=== PATIENT | male | born 1945 | race Caucasian/White ===

== ENCOUNTER 2018-11-10 21:17 | Emergency (ER) | payer OTHER, MEDICAID ==
[~2018-11-10] VITALS: Ht 165.1 cm; Wt 86.2 kg
[2018-11-10 21:37] VITALS: BP 114/66
--- NOTE | 2018-11-10 21:38 | NUR ---
TO BED # 12 VIA W/C, REPORT GIVEN TO JANE RAMSEY
--- NOTE | 2018-11-10 21:45 | NUR ---
PT CAME INTO THE ER W/ C/O ABDOMINAL PAIN, DENIES N/V, NO BM X 3 DAYS. ABDOMEN SOFT AND DISTENDED,BS ACTIVE IN ALL 4 Q, TENDER TO PALPATION ALL 4 Q, PT GRIMACING, 10/10 PAIN. PT TOOK PEPTOBISMOL AT HOME AND HAD NO EFFECT. PAST MED HX: LYMPHOMA, STROKE, PACEMAKER AND DIFIBRILLATOR PUT IN, HTN, HIGH CHOLESTEROL. CURRENT RX:OMEPRAZOLE, ATORVASTATIN, LIPITOR, LISINOPRIL, CARBADALOL. Addendum: 11/10/18 at 2228 by MEDGA PT CAME INTO THE ER W/ C/O ABDOMINAL PAIN, DENIES N/V, NO BM X 3 DAYS. ABDOMEN SOFT AND DISTENDED,BS ACTIVE IN ALL 4 Q, TENDER TO PALPATION ALL 4 Q, PT GRIMACING, 10/10 PAIN. PT TOOK PEPTOBISMOL AT HOME AND HAD NO EFFECT. SAFETY PRECAUTIONS IN PLACE, MADE AWARE, WILL CONTINUE TO MONITOR. PAST MED HX: LYMPHOMA, STROKE, PACEMAKER AND DIFIBRILLATOR PUT IN, HTN, HIGH CHOLESTEROL. CURRENT RX:OMEPRAZOLE, ATORVASTATIN, LIPITOR, LISINOPRIL, CARBADALOL.
[2018-11-10] MEDS ORDERED: KETOROLAC 60 MG/2 ML VIAL IM ONE (22:55)
--- NOTE | 2018-11-10 23:08 | NUR ---
PT TAKEN TO XRAY IN BED BY RT.
[2018-11-10] MEDS ORDERED: LACTULOSE 20 GM/30 ML UDC PO ONE (23:30)
[2018-11-10] MEDS ORDERED: PANTOPRAZOLE 40 MG TABEC PO ONE (23:30)
--- NOTE | 2018-11-10 23:32 | NUR ---
PT RETURN FROM XRAY
--- NOTE | 2018-11-10 23:35 | NUR ---
PT BACK FROM XRAY, TOLERATED PROCEDURE WELL.
[2018-11-10 23:48] VITALS: BP 114/68
--- NOTE | 2018-11-10 23:48 | NUR ---
Patient discharged with v/s stable. Written and verbal after care instructions given and explained. Patient alert, oriented and verbalized understanding of instructions. Ambulatory with steady gait. All questions addressed prior to discharge. ID band removed. Patient advised to follow up with PMD. Rx of Lactulose, Mineral oil, Protonix given. Patient educated on indication of medication including possible reaction and side effects. Opportunity to ask questions provided and answered.
== END 2018-11-10 23:48 | disposition home or self-care (01) ==
LOC: MED 21:17
DX: K29.70 Gastritis, unspecified, without bleeding (principal); K59.00 Constipation, unspecified; I10 Essential (primary) hypertension; Z85.9 Personal history of malignant neoplasm, unspecified; Z86.73 Personal history of transient ischemic attack (TIA), and cerebral infarction without residual deficits; Z95.0 Presence of cardiac pacemaker
CPT/HCPCS: 74022; 96372; 99283; J1885

== ENCOUNTER 2018-11-21 07:10 | Emergency (ER) | payer OTHER, MEDICAID ==
[~2018-11-21] VITALS: Ht 162.6 cm; Wt 84.4 kg
[2018-11-21 07:20] VITALS: BP 132/81
--- NOTE | 2018-11-21 07:21 | NUR ---
BIB SELF. AAO X 4. C/O RT LOWER BACK PAIN X3 DAYS. REPORTS CONSTANT TIGHT PAIN AT 10/10. PT DENIES UTI SYMPTOMS. DENIES N/V/D OR FEVER. PT STATES HE THINKS ITS HIS KIDNEY FROM TAKING TOO MANY MEDICATIONS. PT STATES NO MEDICATION TO RELIEVE PAIN. HOB UP. BED SIDE RAILS UP X1. ON LOW BED POSITION, LOCKED. ER MADE AWARE OF PT STATUS.
[2018-11-21] MEDS ORDERED: NACL 0.9% 1,000 ML IV SCH (07:46)
[2018-11-21] MEDS ORDERED: KETOROLAC 30 MG/ML VIAL IVP ONE (07:50)
--- NOTE | 2018-11-21 08:00 | NUR ---
PT TAKEN TO CT VIA BED BY [employer] MANA[employer].
[2018-11-21 08:08] LABS: BASOPHILS % (AUTO) 0.6 % (0.0-2.0); EOSINOPHILS # (AUTO) 0.2 K/uL (0-0.4); EOSINOPHILS % (AUTO) 2.8 % (0.0-4.0); HEMOGLOBIN 13.7 g/dL (12.0-18.0); LYMPHOCYTES # (AUTO) 1.1 K/uL (2.0-11.5); LYMPHOCYTES % (AUTO) 17.5 % (20.5-51.1); MEAN CORPUSCULAR HEMOGLOBIN 30 pg (27-31); MEAN CORPUSCULAR HGB CONC 34 g/dL (33-37); MEAN CORPUSCULAR VOLUME 86.2 fL (80-94); MONOCYTES # (AUTO) 0.5 K/uL (0.8-1.0); MONOCYTES % (AUTO) 8.3 % (1.7-9.3); NEUTROPHILS # (AUTO) 4.5 K/uL (1.8-7.7); NEUTROPHILS % (AUTO) 70.8 % (42.2-75.2); PLATELET COUNT (AUTO) 330 K/uL (140-450); RED BLOOD CELL COUNT(AUTO) 4.64 MIL/uL (4.20-6.10); WHITE BLOOD COUNT (AUTO) 6.4 K/uL (4.8-10.8)
[2018-11-21 08:09] LABS: APPEARANCE,URINE CLEAR (CLEAR); BILIRUBIN,URINE NEGATIVE (NEGATIVE); BLOOD, URINE 3+ (NEGATIVE); COLOR,URINE YELLOW (YELLOW); LEUKOCYTE ESTERASE ,URINE NEGATIVE (NEGATIVE); NITRITE, URINE NEGATIVE (NEGATIVE); UGLUCOSE NEGATIVE (NEGATIVE)
--- NOTE | 2018-11-21 08:10 | NUR ---
PT BACK FROM CT VIA BED.
[2018-11-21 08:18] LABS: ANION GAP 15.5 (8-16); CARBON DIOXIDE 24.3 mmol/L (21-32); CHLORIDE 101 mmol/L (98-107); GLUCOSE 110 mg/dL (74-106); POTASSIUM 3.8 mmol/L (3.5-5.1); SODIUM SERUM 137 mmol/L (136-145); UREA NITROGEN, BLOOD 13 mg/dL (7-18)
[2018-11-21 08:32] LABS: ALBUMIN 3.4 g/dL (3.4-5.0); ASPARTATE AMINOTRANSFERASE 22 U/L (15-37); LIPASE 158 U/L (73-393); TOTAL BILIRUBIN 0.5 mg/dL (0.0-1.0)
[2018-11-21 08:33] LABS: RBC,URINE 11-20 (MOD) /HPF (0-5); WBC,URINE 0-5 /HPF (0-5)
[2018-11-21] MEDS ORDERED: KETOROLAC 30 MG/ML VIAL ONE (08:37)
[2018-11-21 09:02] VITALS: BP 136/74
--- NOTE | 2018-11-21 09:02 | NUR ---
Patient discharged with v/s stable. Written and verbal after care instructions given and explained. Patient alert, oriented and verbalized understanding of instructions. Ambulatory with steady gait. All questions addressed prior to discharge. ID band removed. Patient advised to follow up with PMD. Rx of [place] 5mg-325mg, Motrin given. Patient educated on indication of medication including possible reaction and side effects. Opportunity to ask questions provided and answered.
== END 2018-11-21 09:02 | disposition home or self-care (01) ==
LOC: MED 07:10
DX: M54.5 Low back pain (principal); I10 Essential (primary) hypertension; Z95.0 Presence of cardiac pacemaker; Z86.73 Personal history of transient ischemic attack (TIA), and cerebral infarction without residual deficits
CPT/HCPCS: 36415; 74176; 80053; 81001; 83690; 85025; 87086; 96374; 99284; J1885; J7030

== ENCOUNTER 2018-11-25 12:08 | Emergency (ER) | payer OTHER, MEDICAID ==
[~2018-11-25] VITALS: Ht 162.6 cm; Wt 88.0 kg
[2018-11-25 12:10] VITALS: BP 132/67
--- NOTE | 2018-11-25 12:18 | NUR ---
Patient ambulated to bed 7. RN evaluating pateint at bedside.
--- NOTE | 2018-11-25 12:31 | NUR ---
PT C/O LOW BACK PAIN ACHING, NONRADIATING CONTINUOUS X 2 WEEKS, DIZZINESS SINCE THIS AM AFTER NORCO, +NAUSEA, NO VOMITTING OR DIARRHEA NOTED. DENIES CP/SOB AT THIS TIME. ABD SOFT, ROUND NONTENDER, BOWEL SOUNDS PRESENT X 4 QUADRANTS. A/OX4, STEADY GAIT, DENIES VISION CHANGES AT THIS TIME. PT PLACED ON FUL MONITOR, BED LOCKED IN LOW POSITION, SIDE RAILS UP X 1.
--- NOTE | 2018-11-25 12:34 | NUR ---
DR. BARRY AT BEDSIDE
[2018-11-25] MEDS ORDERED: NACL 0.9% 1,000 ML IV ONE (12:37)
[2018-11-25] MEDS ORDERED: MORPHINE SULFATE 4 MG/ML SYR IVP ONE (12:40)
[2018-11-25] MEDS ORDERED: ONDANSETRON 4 MG/2 ML VIAL IVP ONE (12:40)
[2018-11-25 13:36] LABS: BASOPHILS % (AUTO) 0.4 % (0.0-2.0); EOSINOPHILS # (AUTO) 0.1 K/uL (0-0.4); EOSINOPHILS % (AUTO) 1.5 % (0.0-4.0); HEMATOCRIT 34.9 % (36-52); HEMOGLOBIN 11.6 g/dL (12.0-18.0); LYMPHOCYTES # (AUTO) 0.7 K/uL (2.0-11.5); LYMPHOCYTES % (AUTO) 11.5 % (20.5-51.1); MEAN CORPUSCULAR HEMOGLOBIN 29 pg (27-31); MEAN CORPUSCULAR HGB CONC 33 g/dL (33-37); MONOCYTES # (AUTO) 0.6 K/uL (0.8-1.0); NEUTROPHILS # (AUTO) 4.5 K/uL (1.8-7.7); NEUTROPHILS % (AUTO) 76.6 % (42.2-75.2); PLATELET COUNT (AUTO) 224 K/uL (140-450); RED BLOOD CELL COUNT(AUTO) 3.97 MIL/uL (4.20-6.10); RED CELL DISTRIBUTION WIDTH 14.6 % (11.6-13.7); WHITE BLOOD COUNT (AUTO) 5.8 K/uL (4.8-10.8)
[2018-11-25 13:53] LABS: ANION GAP 10.8 (8-16); CARBON DIOXIDE 26.9 mmol/L (21-32); CHLORIDE 106 mmol/L (98-107); CREATININE 0.9 mg/dL (0.7-1.3); GLUCOSE 90 mg/dL (74-106); POTASSIUM 3.7 mmol/L (3.5-5.1); SODIUM SERUM 140 mmol/L (136-145); UREA NITROGEN, BLOOD 13 mg/dL (7-18)
[2018-11-25 14:11] LABS: ASPARTATE AMINOTRANSFERASE 21 U/L (15-37); LIPASE 148 U/L (73-393); TOTAL BILIRUBIN 0.3 mg/dL (0.0-1.0)
[2018-11-25 15:03] LABS: APPEARANCE,URINE CLEAR (CLEAR); BILIRUBIN,URINE NEGATIVE (NEGATIVE); BLOOD, URINE 1+ (NEGATIVE); COLOR,URINE YELLOW (YELLOW); LEUKOCYTE ESTERASE ,URINE NEGATIVE (NEGATIVE); NITRITE, URINE NEGATIVE (NEGATIVE); UGLUCOSE NEGATIVE (NEGATIVE)
--- NOTE | 2018-11-25 15:30 | NUR ---
PT STATES PAIN IS COMING BACK, DR. BARRY MADE AWARE.
[2018-11-25 15:42] LABS: RBC,URINE 0-5 /HPF (0-5)
[2018-11-25 15:43] LABS: WBC,URINE 0 /HPF (0-5)
[2018-11-25] MEDS ORDERED: KETOROLAC 30 MG/ML VIAL IVP ONE (16:30)
[2018-11-25 17:15] VITALS: BP 119/62
== END 2018-11-25 17:10 | disposition home or self-care (01) ==
LOC: MED 12:08
DX: M54.5 Low back pain (principal); R42 Dizziness and giddiness; R11.10 Vomiting, unspecified; I10 Essential (primary) hypertension; Z86.73 Personal history of transient ischemic attack (TIA), and cerebral infarction without residual deficits; Z85.9 Personal history of malignant neoplasm, unspecified
CPT/HCPCS: 36415; 74176; 80053; 81001; 83605; 83690; 85025; 87040; 96361; 96374; 96375; 99284; J1885; J2270; J2405; J7030